=== PATIENT | male | born 1955 | race Caucasian/White ===

== ENCOUNTER → 2019-06-14 15:49 | Outpatient (CLI) | payer BC, SELFPAY ==
[2018-05-27 18:33] VITALS: BMI 33.5
--- NOTE | 2019-06-14 15:54 | RAD_ITS ---
STUDY: X-RAY - RIGHT KNEE REASON FOR EXAM: Male, 64 years old. bilateral knee pain TECHNIQUE: 4 view(s) of the knee. COMPARISON: None. FINDINGS: Normal visualized distal femur. Normal visualized proximal tibia and fibula. Normal proximal tibiofibular articulation. Narrowed medial femorotibial compartment. Narrowed lateral femorotibial compartment. Severely narrowed lateral patellofemoral articulation with patellar spurring.. There is mild valgus deformity. The soft tissue structures are unremarkable. RAD/Knee 4 or More Views IMPRESSION: Advanced osteoarthritic changes. No acute fracture or other significant bony pathology Electronically Signed: Gamaliel Jean MD at 16:11 EDT , Service support ,
--- NOTE | 2019-06-14 15:54 | RAD_ITS ---
STUDY: X-RAY - LEFT KNEE REASON FOR EXAM: Male, 64 years old. bilateral knee pain TECHNIQUE: 4 view(s) of the knee. COMPARISON: None. FINDINGS: Normal visualized distal femur. Normal visualized proximal tibia and fibula. Normal proximal tibiofibular articulation. Severely narrowed medial femorotibial compartment. Severely narrowed lateral femorotibial compartment. Severely narrowed patellofemoral articulation. Large patellar spurs. Prominent valgus deformity. Large calcific density seen within the right suprapatella bursa RAD/Knee 4 or More Views IMPRESSION: Severe osteoarthritic changes. No evidence for acute fracture Electronically Signed: Gamaliel Jean MD at 17:06 EDT , Service support ,
== END ==
LOC: MTRAD 15:52
PROVIDERS: PCP Family Medicine; Referring Provider Family Medicine; Visit Provider Family Medicine
DX: M25.561 Pain in right knee (principal); M25.562 Pain in left knee
CPT/HCPCS: 73564

== ENCOUNTER → 2020-02-16 | Outpatient (CLI) | payer BC, SELFPAY ==
[2018-05-27 18:33] VITALS: BMI 33.5
== END | disposition home or self-care (01) ==
LOC: LABSPEC 10:08
PROVIDERS: PCP Family Medicine; Referring Provider Family Medicine; Visit Provider Family Medicine
DX: Z20.828 Contact with and (suspected) exposure to other viral communicable diseases (principal)
CPT/HCPCS: 87635; U0003

== ENCOUNTER → 2020-02-22 09:59 | Outpatient (CLI) | payer BC, SELFPAY ==
[2018-05-27 18:33] VITALS: BMI 33.5
--- NOTE | 2020-02-22 10:02 | RAD_ITS ---
STUDY: X-RAY CHEST REASON FOR EXAM: Male, 64 years old. Suspected covid-19 virus infection TECHNIQUE: PA and lateral views of the chest. COMPARISON: None. FINDINGS: Patchy infiltrates are seen in both lungs worse in the right hemithorax with a preferential peripheral distribution. This is suggestive of a Covid pneumonitis. There is no demonstrated pleural abnormality. Normal size heart. Normal mediastinum and kingsley. Normal visualized pulmonary arteries. There is atherosclerotic tortuosity of the aortic arch and descending thoracic aorta. There are degenerative changes of the visualized thoracic spine. Normal visualized ribs, clavicles, and shoulders. There is no demonstrated abnormality of the visualized soft tissue structures of the upper abdomen. RAD/Chest PA and Lateral IMPRESSION: Patchy bilateral peripheral infiltrates worse in the right hemithorax suggestive of Covid pneumonitis. Electronically Signed: Manny Beach, at 11:08 EST , Service support ,
== END ==
PROVIDERS: PCP Family Medicine; Referring Provider Family Medicine; Visit Provider Family Medicine
DX: Z20.828 Contact with and (suspected) exposure to other viral communicable diseases (principal)
CPT/HCPCS: 71046; 87633; 87635; U0003

== ENCOUNTER → 2020-04-17 16:03 | Outpatient (CLI) | payer OTHER, SELFPAY ==
[2018-05-27 18:33] VITALS: BMI 33.5
--- NOTE | 2020-04-17 16:10 | RAD_ITS ---
STUDY: X-RAY - CERVICAL SPINE REASON FOR EXAM: Male, 64 years old. Neck pain and shoulder pain, no known injury TECHNIQUE: 7 view(s) of the cervical spine were obtained. COMPARISON: None FINDINGS: Normal anterior atlantoaxial articulation. Normal odontoid process. Normal cervical lordosis. Normal vertebral bodies. Mild spurring at the lower cervical endplates bridging C5 and C7. Narrowed C5-6 and C6-7 disc space heights. Uncovertebral spurring narrowing the C5-6 and C6-7 intervertebral neuroforamina. Flexion and extension lateral views are normal. The soft tissue structures are unremarkable. RAD/Cerv Spine Obl/Flex/Ext Comp IMPRESSION: Degenerative changes of the visualized cervical spine. Electronically Signed: Parviz Silvestre DO at 23:54 EST Tel [phone], Service support ,
== END ==
PROVIDERS: PCP Family Medicine; Referring Provider Family Medicine; Visit Provider Family Medicine
DX: M54.2 Cervicalgia (principal)
CPT/HCPCS: 72052

== ENCOUNTER 2020-04-24 16:02 | Outpatient (RCR) | payer OTHER, SELFPAY ==
[2018-05-27 18:33] VITALS: BMI 33.5
--- NOTE | 2020-04-24 17:08 | HP.PTEVAL_ITS ---
Patient's Visit Information HUANG HERRING Jr. is a 64 year old M referred to Physical Therapy by Dr. Kvng Jones MD with a diagnosis of Cervical DDD C5-7. Date of Evaluation: 04/24/20 Physical Therapist: Hermilo Lai PT, Cert MDT, OCS - Visit Plan Frequency: 1-2x /Week Duration: 4 Weeks Plan: 1-2xs/week for 4 weeks per POC. PT Interventions: Mechanical traction, postural training and strengthening, cervical AROM, stretching/flexibility,thoracic moblity - Subjective Patient is a 64 year old male presenting to the clinic with chronic neck pain. Reports the pain in posterior neck is sharp and a 10/10. Denies radicular pain, numbness and tingling. Patient states that his neck pain has been going on for a year and a half but has been getting worse over the past month. Denies any previous Hx of cervical issues. Reports headaches in the morning but denies dizziness. Aggravating Factor: Reaching overhead, sudden movements. Patient sleeps on his side and wakes up occassionally from pain. X-ray: DDD. Vocation: Community Liaison - Pain Bilateral Neck Pain Intensity (Out of 10): 0 Pain Intensity Range: 10 - Objective Cervical AROM: Flexion WNL, Ext 45 degrees (increase symptoms), R side bending 43, L side bending 46, R Rotation 40, L rotation 42. UE MMT: R shoulder flexion 5/5, abd 5/5, biceps 5/5, elbow ext 5/5, finger flexors 5/5. L shoulder flexion 5/5, abd 5/5, biceps 5/5, elbow ext 5/5, finger flexors 5/5. Palpation: No TTP; unremarkable. Thoracic mobility: mild limitations. Sensation: Intact to light touch in B UE. Posture: Increased thoracic kyphosis, mild forward flexion of cervical spine. Patient benefits some from Mechanical Traction. - Special Tests C/S Radiculapathy - Left Spurlings: Negative C/S Radiculapathy - Right Spurlings: Negative C/S Radiculapathy - Left Cervical distraction: Negative C/S Radiculapathy - Right Cervical distraction: Negative Cervical Sitting: Protrusion - Mechanical Response: No effect Cervical Sitting: Protrusion - Symptoms During Testing: No effect Cervical Sitting: Protrusion - Symptoms After Testing: No effect Cervical Sitting: Retraction - Mechanical Response: Increases motion Cervical Sitting: Retraction - Symptoms During Testing: No effect Cervical Sitting: Retraction - Symptoms After Testing: No effect Comments:: with extension Cervical Sitting: Retraction-Extension - Mechanical Response: Increases motion Cerv Sitting: Retraction-Extension - Symptoms During Testing: Increases Cerv Sitting: Retraction-Extension - Symptoms After Testing: No worse Comments:: Cervical Ext ROM increased after 10 reps Cervical Sitting: Sidebend Right - Mechanical Response: No effect Cervical Sitting: Sidebend Right - Symptoms During Testing: Produces Cervical Sitting: Sidebend Right - Symptoms After Testing: No effect Cervical Sitting: Sidebend Left - Mechanical Response: No effect Cervical Sitting: Sidebend Left - Symptoms During Testing: No effect Cervical Sitting: Sidebend Left - Symptoms After Testing: No effect Cervical Sitting: Rotation Right - Mechanical Response: No effect Cervical Sitting: Rotation Right - Symptoms During Testing: No effect Cervical Sitting: Rotation Right - Symptoms After Testing: No effect Cervical Sitting: Rotation Left - Mechanical Response: No effect Cervical Sitting: Rotation Left - Symptoms During Testing: No effect Cervical Sitting: Rotation Left - Symptoms After Testing: No effect Cervical Sitting: Flexion - Mechanical Response: No effect Cervical Sitting: Flexion - Symptoms After Testing: No effect - Goals Goal 1:: Patient will demonstrate independence with HEP. Goal Time Frame: 2-4 Weeks Goal 2:: Patient will demonstrate improvements in postural strength for functional mobility and better body mechanics. Goal Time Frame: 2-4 Weeks Goal 3:: Patient will demonstrate WNL for all cervical ROM with no reports of increased pain for improved functional mobility. Goal Time Frame: 2-4 Weeks Goal 4:: Patient will demonstrate improved Oswetry (neck) score by 5 or > points. Goal Time Frame: 2-4 Weeks - Rehabilitation Potential Physical Therapy Diagnosis: Patient is a 64 year old male presenting to the clinic with B posterior neck pain with cervical AROM. Patient demonstrates mild limitations with cervical ext due to pain. No presence of radicular symptoms. Rehabilitation Potential: Good - Anticipated Interventions Patient/Client Instruction: Educate patient on: Condition, Plan of Care, Benefits of Fitness Program For the Purpose of:: To decrease pain, To increase ROM, To improve muscle performance and motor function, To improve ability of physical actions for home/community/work/leisure, To increase flexibility/ROM, To improve health and function, To improve self management Therapeutic Exercise to Include: Strength training, Body mechanics, Postural training, Flexibilty training, Active ROM Comment: Cervical AROM, postural training and strengthening. For the Purpose of:: To decrease pain, To increase ROM, To improve muscle performance and motor function, To improve ability of physical actions for home/community/work/leisure, To increase flexibility/ROM, To improve health and function, To improve self management Other electric stimulation: Yes Cryotherapy (ice pack, ice massage): Yes Thermo therapy (hot pack): Yes Intermittent cervical traction: Yes For the Purpose of:: To decrease pain, To increase ROM, To improve muscle performance and motor function, To increase tolerance to activity/condition/position, To improve ability of physical actions for home/community/work/leisure, To increase flexibility/ROM, To improve health and function, To improve self management Thank you for the opportunity to evaluate your patient. For Medicare and Medicare HMO plans, please review the plan of care and approve it. It will need to be FAXED BACK to us at [phone] for Medicare purposes. For Medicare only, by signing this I certify the plan of care. Please let me know if there are questions or concerns regarding this plan of care. Physician Signature: Date:
--- NOTE | 2020-10-08 13:33 | HP.PTDCNRP_ITS ---
HUANG HERRING Jr. was seen in my office for initial evaluation on 04/24/20. The following Plan of Care was established for this patient: Initial Frequency: 1-2x /Week Initial Duration: 4 Weeks Patient/Client Instruction: Educate patient on: Condition, Plan of Care, Benefits of Fitness Program For the Purpose of:: To decrease pain, To increase ROM, To improve muscle performance and motor function, To improve ability of physical actions for home/community/work/leisure, To increase flexibility/ROM, To improve health and function, To improve self management Therapeutic Exercise to Include: Strength training, Body mechanics, Postural training, Flexibilty training, Active ROM For the Purpose of:: To decrease pain, To increase ROM, To improve muscle performance and motor function, To improve ability of physical actions for daphnie e/community/work/leisure, To increase flexibility/ROM, To improve health and function, To improve self management Other electric stimulation: Yes Cryotherapy (ice pack, ice massage): Yes Thermo therapy (hot pack): Yes Intermittent cervical traction: Yes For the Purpose of:: To decrease pain, To increase ROM, To improve muscle performance and motor function, To increase tolerance to activity/condition/position, To improve ability of physical actions for home/community/work/leisure, To increase flexibility/ROM, To improve health and function, To improve self management This patient was last seen in our office . Pertinent comments regarding their Physical therapy will appear below: Patient was seen for PT for cervical radiculopathy for HEP At this point I will be discontinuing this patient from physical therapy. I would be happy to see this patient again in the future if found appropriate by the physician. Thank you! Hermilo Lai, PT, Cert MDT, OCS Balance/Gait/Functional tests - Balance/Special Test Scores Oswestry Neck Score: 13
== END 2020-04-24 19:00 | disposition home or self-care (01) ==
LOC: PT 16:02
PROVIDERS: PCP Family Medicine; Referring Provider Family Medicine; Visit Provider Family Medicine
DX: M50.320 Other cervical disc degeneration, mid-cervical region, unspecified level (principal)
CPT/HCPCS: 97012; 97110; 97161

== ENCOUNTER 2021-04-24 08:53 | Outpatient (CLI) | payer OTHER, SELFPAY ==
[2021-04-24 10:28] LABS: Hemoglobin A1c 9.6 % (3.8-5.6)
[2021-04-24 10:33] LABS: ALB/GLOB Ratio 0.9 RATIO (0.9-2.4); AST(SGOT) 17 U/L (15-37); Alanine Aminotransfer ALT/SGPT 32 U/L (16-61); Albumin, Serum 3.5 g/dL (3.2-5.0); Alkaline Phosphatase 107 U/L (45-117); Anion Gap 4 (5-15); BUN 13 mg/dL (7-18); BUN/Creat Ratio 13.9 RATIO (10-20); Calcium,Total 8.9 mg/dL (8.5-10.1); Chloride 107 mmol/L (98-107); Cholesterol 150 mg/dL (200); Creatinine, Serum 0.93 mg/dL (0.70-1.30); EST Glomerular Filtration Rate 86 mL/min (>60); Est Glom Filt Rate - Afr Amer 104 mL/min (>60); Glucose 123 mg/dL (74-106); High Density Lipoprotein 32 mg/dL; PSA,Total - Annual Screen 0.41 ng/mL (0.00-4.00); Potassium 3.9 mmol/L (3.5-5.1); Protein, Total 7.5 g/dL (6.4-8.2); Sodium Level 137 mmol/L (136-145); Thyroid Stim Hormone (TSH) 4.14 uIU/mL (0.358-3.74); Triglycerides 101 mg/dL; Very Low Density Lipoprotein 20 mg/dL (5-40)
[2021-04-25 09:26] LABS: T4 Free Direct 0.83 ng/dL (0.76-1.46)
== END 2021-04-24 23:59 | disposition home or self-care (01) ==
LOC: MFPLAB 09:01
PROVIDERS: PCP Family Medicine; Referring Provider Family Medicine; Visit Provider Family Medicine
DX: E11.65 Type 2 diabetes mellitus with hyperglycemia (principal); Z12.5 Encounter for screening for malignant neoplasm of prostate
CPT/HCPCS: 36415; 80053; 80061; 83036; 84153; 84403; 84439; 84443; G0103

== ENCOUNTER → 2022-07-15 | Outpatient (CLI) | payer OTHER, SELFPAY ==
[2022-07-15 11:05] LABS: ALB/GLOB Ratio 0.9 RATIO (0.9-2.4); AST(SGOT) 16 U/L (15-37); Alanine Aminotransfer ALT/SGPT 27 U/L (16-61); Albumin, Serum 3.6 g/dL (3.2-5.0); Alkaline Phosphatase 95 U/L (45-117); Anion Gap 5 (5-15); BUN 18 mg/dL (7-18); BUN/Creat Ratio 20.3 RATIO (10-20); Calcium,Total 8.7 mg/dL (8.5-10.1); Chloride 108 mmol/L (98-107); Cholesterol 120 mg/dL (200); Creatinine, Serum 0.88 mg/dL (0.70-1.30); EST Glomerular Filtration Rate 91 mL/min (>60); Est Glom Filt Rate - Afr Amer 110 mL/min (>60); Globulin 3.8 g/dL (2.2-4.2); Glucose 123 mg/dL (74-106); High Density Lipoprotein 28 mg/dL; Potassium 4.1 mmol/L (3.5-5.1); Protein, Total 7.4 g/dL (6.4-8.2); Sodium Level 139 mmol/L (136-145); T4 Free Direct 0.88 ng/dL (0.76-1.46); Triglycerides 83 mg/dL; Very Low Density Lipoprotein 17 mg/dL (5-40)
== END | disposition home or self-care (01) ==
LOC: MTLAB 07:02
PROVIDERS: PCP Family Medicine; Referring Provider Family Medicine; Visit Provider Family Medicine
DX: E11.65 Type 2 diabetes mellitus with hyperglycemia (principal)
CPT/HCPCS: 36415; 80053; 80061; 84403; 84439; 84443

== ENCOUNTER → 2023-11-03 | Outpatient (CLI) | payer OTHER, SELFPAY ==
--- NOTE | 2023-11-03 16:59 | CT_ITS ---
EXAM: CT LEFT LOWER EXTREMITY WITHOUT INTRAVENOUS CONTRAST CLINICAL INDICATION: OA TECHNIQUE: Helically acquired images were obtained of the left lower extremity without intravenous contrast. 2-D reformats were performed by the technologist. CTDIvol = ( 18.76 ) mGy, DLP = ( 1134.33 ) mGycm This CT exam was performed using one or more of the following dose reduction techniques: automated exposure control, adjustment of the mA and/or kV according to patient size, and/or use of iterative reconstruction technique. COMPARISON: June 14, 2019 FINDINGS: BONES/JOINTS: Lateral subluxation of the patella relative to the femur, likely degenerative. 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 At least moderate suprapatellar joint effusion with small Fuentes''s cyst (which also contains intra-articular bodies related to synovial osteochondromatosis). Moderate osteoarthrosis involving the tibiotalar articulation with small corticated intra-articular ossific body (8 mm) at the posterior aspect of the articulation. No acute or healing fracture or malalignment. No acute or healing fracture. No osteochondral lesions at the tibiotalar articulation. SOFT TISSUES: Large fat-containing left inguinal hernia. No soft tissue swelling or gas. No radiopaque foreign body. No focal soft tissue abnormalities. CT/Extremity Lower without Contra IMPRESSION: 1. 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 2. At least moderate suprapatellar joint effusion with small Fuentes''s cyst (which also contains intra-articular bodies related to synovial osteochondromatosis). Electronically Signed: Peter Garcia MD at 2:24 EDT ,
== END | disposition home or self-care (01) ==
PROVIDERS: PCP Family Medicine; Referring Provider Orthopaedic Surgery; Visit Provider Orthopaedic Surgery
DX: M17.12 Unilateral primary osteoarthritis, left knee (principal)
CPT/HCPCS: 73700

== ENCOUNTER → 2023-12-21 | Outpatient (CLI) | payer OTHER, SELFPAY ==
--- NOTE | 2023-12-21 10:34 | EKG12_ITS ---
Test Reason : PREOP Blood Pressure : / mmHG Vent. Rate : 069 BPM Atrial Rate : 069 BPM P-R Int : 122 ms QRS Dur : 086 ms QT Int : 394 ms P-R-T Axes : 059 -39 -17 degrees QTc Int : 422 ms Normal sinus rhythm Left axis deviation Minimal voltage criteria for LVH, may be normal variant Abnormal ECG Confirmed by CHRISTOPHE PALOMO, BERNA ([id number]), senior technical editor ANGELICA ZAPATA ([id number]) on 12/22/2023 10:10:48 AM Referred By: John Thomas Confirmed By:BERNA SAEED MD
--- NOTE | 2023-12-21 10:56 | RAD_ITS ---
INDICATION: PRE-OP EXAMINATION/TECHNIQUE: X-RAY - XR Chest 2 Views COMPARISON: February 22, 2020 FINDINGS: LINES/DEVICES: None. LUNGS: No consolidation, edema or effusion. No pneumothorax. MEDIASTINUM AND CARDIOVASCULAR STRUCTURES: Cardiac silhouette not enlarged. Central airways and mediastinal contour are unremarkable. BONES AND SOFT TISSUES: Degenerative vertebral changes. RAD/Chest PA and Lateral IMPRESSION: No radiographic evidence of acute cardiopulmonary disease. Electronically Signed: Parviz Silvestre DO at 16:05 EDT ,
[2023-12-21 12:05] LABS: Absolute Lymphocyte Count 1.74 X10^3/uL (0.83-4.51); Absolute Neutrophil Count 2.7 X10^3/uL (2.0-7.7); Basophil# 0.04 X10^3/uL; Basophil% 0.8 % (0-1); Eosinophil# 0.21 X10^3/uL; Hematocrit 49.7 % (40-54); Hemoglobin 16.8 g/dL (13.0-16.5); Lymphocyte # 1.74 X10^3/ul (0.83-4.51); Lymphocyte % 33.1 % (19-41); Mean Corp Hgb Conc 33.8 g/dL (32-36); Mean Corpuscular Hgb 31.3 pg (27.0-32.0); Mean Corpuscular Volume 92.6 fL (80-94); Mean Platelet Vol. 10.4 fl (6.2-12.0); Monocyte# 0.58 X10^3/uL; NRBC Flagged by Analyzer 0 % (0-5); Neutrophil # 2.67 X10^3/uL (2.7-7.7); Neutrophil % 50.9 % (47-70); Platelet Count 309 K/mm3 (150-450); RBC Distribution Width CV 13.1 % (11.6-14.6); RBC Distribution Width SD 44.3 fl (35.1-43.9); Red Blood Count 5.37 M/mm3 (4.6-6.2); White Blood Count 5.3 K/mm3 (4.4-11.0)
[2023-12-21 12:38] LABS: Hemoglobin A1c 6.3 % (3.8-5.6)
[2023-12-21 12:46] LABS: Albumin, Serum 3.6 g/dL (3.2-5.0); Anion Gap 5 (5-15); BUN 16 mg/dL (7-18); BUN/Creat Ratio 17.5 RATIO (10-20); Calcium,Total 9.2 mg/dL (8.5-10.1); Chloride 109 mmol/L (98-107); Creatinine, Serum 0.91 mg/dL (0.70-1.30); EST Glomerular Filtration Rate 88 mL/min (>60); Est Glom Filt Rate - Afr Amer 106 mL/min (>60); Glucose 93 mg/dL (74-106); Potassium 4.2 mmol/L (3.5-5.1); Sodium Level 141 mmol/L (136-145)
== END | disposition home or self-care (01) ==
PROVIDERS: PCP Family Medicine; Referring Provider Orthopaedic Surgery; Visit Provider Orthopaedic Surgery
DX: Z01.818 Encounter for other preprocedural examination (principal); E11.9 Type 2 diabetes mellitus without complications; Z01.810 Encounter for preprocedural cardiovascular examination; M17.11 Unilateral primary osteoarthritis, right knee
CPT/HCPCS: 36415; 71046; 80048; 82040; 83036; 85025; 93005

== ENCOUNTER → 2023-12-31 | Outpatient (CLI) | payer OTHER, SELFPAY ==
--- NOTE | 2023-12-31 07:15 | KNEE_PTH ---
PATIENT: HUANG HERRING Jr. LOC: [facility]#:[id number] AGE/SX: 68/M ROOM: RE12/31/[address]: Dr. John Thomas MD : 1955 BED: DIS: 12/31/2023 SPEC #: [id number] RECD: 01/02/24 14:55 STATUS: ERROL POWERS #: [id number] GM: 12/31/23 07:[address]: John Thomas DEPT: SURGICAL PATHOLOGY RECD BY: Steve Ace ENTERED: 01/03/24 07:21 SP TYPE: TOTAL KNEE OTHR DR: Dr. Flynn Jones MD Tissues: Knee, NOS Procedures: Decalcification bone/plaque Surgery Specimen Level IV HEADER OPERATION: Left total knee replacement PRE-OP DIAGNOSIS: Left knee grade 4 primary osteoarthritis with multiple loose bodies TISSUE SUBMITTED: Bone and soft tissue left knee MICROSCOPIC DIAGNOSIS Bone and soft tissue, left knee, total knee replacement/resection: Pieces of bone with degenerative osteoarthritic changes. Fibroadipose tissue, fibroconnective tissue and reactive synovial tissue. : 01/06/2024 MICROSCOPIC DESCRIPTION Slides are reviewed. GROSS DESCRIPTION Received is one container designated bone and soft tissue left knee. The specimen consists of multiple fragments of parker-yellow bone measuring in aggregate 12.0 x 12.0 x 4.0 cm. Also in the specimen container are multiple fragments of yellow-white soft tissue measuring in aggregate 4.5 x 5.0 x 1.5 cm. A number of bony fragments contain articular surfaces consistent with tibial plateau and femoral condyle and displaying prominent osteophyte formation, eburnation and bone erosion. Six variable sized pieces of bone are also noted consistent with loose bodies measuring in aggregate 10.0 x 8.0 x 3.5cm and 1.5 to 7.0cm in length. 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 / LAURA. 01/03/2024 TC:5 CPT: 42252, 38044
== END | disposition home or self-care (01) ==
PROVIDERS: PCP Family Medicine; Referring Provider Orthopaedic Surgery; Visit Provider Orthopaedic Surgery
DX: M17.12 Unilateral primary osteoarthritis, left knee (principal); M23.42 Loose body in knee, left knee
CPT/HCPCS: 88305; 88311

== ENCOUNTER → 2024-10-26 | Outpatient (CLI) | payer OTHER, SELFPAY ==
[2024-10-26 13:30] LABS: AST(SGOT) 23 U/L (<=37); Alanine Aminotransfer ALT/SGPT 30 U/L (<=46); Albumin, Serum 4.2 g/dL (3.4-4.8); Alkaline Phosphatase 103 U/L (40-129); Anion Gap 11 (5-15); BUN 19 mg/dL (4-19); BUN/Creat Ratio 21.7 RATIO (10-20); Calcium,Total 9.3 mg/dL (7.6-11.0); Carbon Dioxide 23.3 mmol/L (21.0-32.0); Chloride 105 mmol/L (98-108); Cholesterol 122 mg/dL (<=200); Globulin 3.0 g/dL (2.2-4.2); Glucose 100 mg/dL (70-99); Low Density Lipoprotein Calc. 79 mg/dL; PSA,Total - Annual Screen 0.31 ng/mL (0.02-4.00); Potassium 4.1 mmol/L (3.3-5.1); Triglycerides 60 mg/dL; Very Low Density Lipoprotein 12 mg/dL (5-40); cholesterol:hdl ratio screen 3.92
== END | disposition home or self-care (01) ==
LOC: MFPLAB 10:51
PROVIDERS: PCP Family Medicine; Referring Provider Family Medicine; Visit Provider Family Medicine
DX: E11.65 Type 2 diabetes mellitus with hyperglycemia (principal); Z12.5 Encounter for screening for malignant neoplasm of prostate; R79.89 Other specified abnormal findings of blood chemistry
CPT/HCPCS: 36415; 80053; 80061; 84153; 84403; 84439; 84443; G0103